=== PATIENT | female | born 1965 | race Hispanic/Latino ===

== ENCOUNTER 2018-09-26 08:40 | Emergency (ER) | payer SELFPAY ==
--- NOTE | 2018-09-26 09:21 | ER ---
Nurse's Notes [facility] Name: Martha Rubio Age: 53 yrs Sex: Female : 1965 Arrival Date: 09/26/2018 Time: 08:42 Bed 20 Private MD: Diagnosis: Allergic dermatitis of eyelid-bilateral;Allergic contact dermatitis Presentation: 09/26 08:44 Presenting complaint: Patient states: Bilateral eye swelling, pt reports "It's from jl7 hair dye that I used on Tuesday and I've had this reaction before with hair dye." Denies any SOB Took 50 mg Benadryl this morning at 0700. Transition of care: patient was not received from another setting of care. Onset: The symptoms/episode began/occurred gradually. Onset of symptoms was September 23, 2016. Risk Assessment: Do you want to hurt yourself or someone else? Patient reports no desire to harm self or others. Initial Sepsis Screen: Does the patient meet any 2 criteria? No. Patient's initial sepsis screen is negative. Does the patient have a suspected source of infection? No. Patient's initial sepsis screen is negative. Care prior to arrival: 50 mg Benadryl this morning \\T\\0700. 08:44 Method Of Arrival: Ambulatory 7 08:44 Acuity: BRAULIO 3 jl7 09:00 Anaphylaxis evaluation, angioedema to eyes. 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 - Social history:: Smoking status: Patient uses tobacco products, 4 cigarettes per day. - Ebola Screening: : No symptoms or risks identified at this time. Screenin:20 Abuse screen: Denies threats or abuse. Denies injuries from another. Nutritional sg screening: No deficits noted. Tuberculosis screening: No symptoms or risk factors identified. Never had TB. Fall Risk None identified. Assessment: 09:00 General: Appears in no apparent distress. well groomed, well developed, well nourished, sg Behavior is calm, cooperative, appropriate for age. Pain: Denies pain. Neuro: No deficits noted. Cardiovascular: Patient's skin is warm and dry. Respiratory: Airway is patent Respiratory effort is even, unlabored, Breath sounds are clear. GI: No signs and/or symptoms were reported involving the gastrointestinal system. : No signs and/or symptoms were reported regarding the genitourinary system. EENT: Sclera/Cornea are clear in right eye and left eye Oral mucosa is moist. Throat is clear is pink. Derm: Skin is pink, warm \\T\\ dry. Musculoskeletal: Range of motion: intact in all extremities, Swelling present in right eye and left eye. Vital Signs: 08:48 BP 127 / 88; Pulse 86; Resp 16 S; Temp 98(O); Pulse Ox 99% on R/A; Weight 46.72 kg (R); jl7 Height 5 ft. 2 in. (157.48 cm) (R); Pain 0/10; 08:48 Body Mass Index 18.84 (46.72 kg, 157.48 cm) jl7 ED Course: 08:40 Patient has correct armband on for positive identification. Call light in reach. Side sg rails up X2. Pulse ox on. NIBP on. Warm blanket given. Head of bed elevated. 08:42 Patient arrived in ED. as 08:47 Triage completed. jl7 08:48 Arm band placed on right wrist. jl7 08:55 Prudencio Cardenas MD is Attending Physician. [facility] 09:25 No provider procedures requiring assistance completed. Patient did not have IV access sg during this emergency room visit. 09:28 Stephen Damon RN is Primary Nurse. sg Administered Medications: 09:28 Drug: Benadryl 25 mg Route: PO; sg 09:28 Drug: predniSONE 60 mg Route: PO; sg 09:28 Drug: Pepcid 40 mg Route: PO; sg Outcome: 09:21 Discharge ordered by . [facility] 09:38 Discharged to home ambulatory, with friend. 09:38 Condition: good 09:38 Discharge instructions given to patient, Instructed on discharge instructions, follow up and referral plans. medication usage, safety practices, Demonstrated understanding of instructions, follow-up care, medications, Prescriptions given X 3. 09:41 Patient left the ED. iw Signatures: Stephen Damon RN RN sg Anderson, Corey, MD MD cha Martinez, Amelia as Williams, Irene, RN RN Cleo Hoskins RN RN jl7
--- NOTE | 2018-09-26 09:22 | EDPHYS ---
Physician Documentation [facility] Name: Martha Rubio Age: 53 yrs Sex: Female : 1965 Arrival Date: 09/26/2018 Time: 08:42 Bed 20 Private MD: ED Physician Prudencio Cardenas HPI: 09/26 09:18 This 53 yrs old Female presents to ER via Ambulatory with complaints of matt Allergic Reaction. 09:18 The patient presents with localized swelling, nasal itching, redness of skin. Onset: matt The symptoms/episode began/occurred 2 day(s) ago. Associated signs and symptoms: The patient has no apparent associated signs or symptoms. At home the patient or guardian has treated the symptoms with nothing. Severity of symptoms: At their worst the symptoms were mild moderate in the emergency department the symptoms are unchanged. The patient has experienced similar episodes in the past, a few times. 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 - Social history:: Smoking status: Patient uses tobacco products, 4 cigarettes per day. - Ebola Screening: : No symptoms or risks identified at this time. ROS: 09:18 Constitutional: Negative for fever, chills, and weight loss, ENT: Negative for injury, matt pain, and discharge, Neck: Negative for injury, pain, and swelling, Cardiovascular: Negative for chest pain, palpitations, and edema, Respiratory: Negative for shortness of breath, cough, wheezing, and pleuritic chest pain, Abdomen/GI: Negative for abdominal pain, nausea, vomiting, diarrhea, and constipation, Back: Negative for injury and pain, : Negative for injury, bleeding, discharge, and swelling, MS/Extremity: Negative for injury and deformity, Skin: Negative for injury, rash, and discoloration, Neuro: Negative for headache, weakness, numbness, tingling, and seizure, Psych: Negative for depression, anxiety, suicide ideation, homicidal ideation, and hallucinations, Allergy/Immunology: Negative for hives, rash, and allergies, Endocrine: Negative for neck swelling, polydipsia, polyuria, polyphagia, and marked weight changes, Hematologic/Lymphatic: Negative for swollen nodes, abnormal bleeding, and unusual bruising. 09:18 Eyes: Positive for swelling, of the right upper eyelid, right lower eyelid, left upper eyelid and left lower eyelid. Exam: 09:18 Constitutional: This is a well developed, well nourished patient who is awake, alert, matt and in no acute distress. Eyes: Pupils equal round and reactive to light, extra-ocular motions intact. Lids and lashes normal. Conjunctiva and sclera are non-icteric and not injected. Cornea within normal limits. Periorbital areas with no swelling, redness, or edema. ENT: Nares patent. No nasal discharge, no septal abnormalities noted. Tympanic membranes are normal and external auditory canals are clear. Oropharynx with no redness, swelling, or masses, exudates, or evidence of obstruction, uvula midline. Mucous membranes moist. Neck: Trachea midline, no thyromegaly or masses palpated, and no cervical lymphadenopathy. Supple, full range of motion without nuchal rigidity, or vertebral point tenderness. No Meningismus. Chest/axilla: Normal chest wall appearance and motion. Nontender with no deformity. No lesions are appreciated. Cardiovascular: Regular rate and rhythm with a normal S1 and S2. No gallops, murmurs, or rubs. Normal PMI, no JVD. No pulse deficits. Respiratory: Lungs have equal breath sounds bilaterally, clear to auscultation and percussion. No rales, rhonchi or wheezes noted. No increased work of breathing, no retractions or nasal flaring. Abdomen/GI: Soft, non-tender, with normal bowel sounds. No distension or tympany. No guarding or rebound. No evidence of tenderness throughout. Back: No spinal tenderness. No costovertebral tenderness. Full range of motion. Skin: Warm, dry with normal turgor. Normal color with no rashes, no lesions, and no evidence of cellulitis. MS/ Extremity: Pulses equal, no cyanosis. Neurovascular intact. Full, normal range of motion. Neuro: Awake and alert, GCS 15, oriented to person, place, time, and situation. Cranial nerves II-XII grossly intact. Motor strength 5/5 in all extremities. Sensory grossly intact. Cerebellar exam normal. Normal gait. Psych: Awake, alert, with orientation to person, place and time. Behavior, mood, and affect are within normal limits. 09:18 Head/face: Noted is swelling, that is moderate, of the right eye and left eye. Vital Signs: 08:48 BP 127 / 88; Pulse 86; Resp 16 S; Temp 98(O); Pulse Ox 99% on R/A; Weight 46.72 kg (R); jl7 Height 5 ft. 2 in. (157.48 cm) (R); Pain 0/10; 08:48 Body Mass Index 18.84 (46.72 kg, 157.48 cm) jl7 MDM: 08:55 Patient medically screened. matt Administered Medications: 09:28 Drug: Benadryl 25 mg Route: PO; sg 09:28 Drug: predniSONE 60 mg Route: PO; sg :28 Drug: Pepcid 40 mg Route: PO; sg Disposition: 09/26/18 09:21 Discharged to Home. Impression: Allergic dermatitis of eyelid - bilateral, Allergic contact dermatitis. - Condition is Stable. - Discharge Instructions: Allergies, Adult, Contact Dermatitis, Contact Dermatitis, [id number], Allergies, [id number], Allergy Skin Testing. - Prescriptions for Benadryl 25 mg Oral Capsule - take 1 capsule by ORAL route every 6 hours As needed; 30 tablet. Pepcid 20 mg Oral Tablet - take 1 tablet by ORAL route every 12 hours for 10 days; 20 tablet. Prednisone 20 mg Oral Tablet - take 2 tablet by ORAL route once daily for 5 days; 10 tablet. - Work release form, Medication Reconciliation Form, Thank You Letter, Antibiotic Education, Prescription Opioid Use form. - Follow up: Private Physician; When: 2 - 3 days; Reason: Recheck today's complaints, Continuance of care, Re-evaluation by your physician. - Problem is new. - Symptoms have improved. Signatures: Stephen Damon RN RN sg Anderson, Corey, MD MD cha Williams, Irene, RN RN Cleo Hoskins RN RN jl7 Corrections: (The following items were deleted from the chart) 09:23 09:21 09/26/2018 09:21 Discharged to Home. Impression: Allergic dermatitis of eyelid - matt bilateral. Condition is Stable. Forms are Medication Reconciliation Form, Thank You Letter, Antibiotic Education, Prescription Opioid Use. Follow up: Private Physician; When: 2 - 3 days; Reason: Recheck today's complaints, Continuance of care, Re-evaluation by your physician. Problem is new. Symptoms have improved. [facility] 09:41 09:23 09/26/2018 09:21 Discharged to Home. Impression: Allergic dermatitis of eyelid - iw bilateral; Allergic contact dermatitis. Condition is Stable. Discharge Instructions: Allergies, Adult, Contact Dermatitis, Contact Dermatitis, Ycix-ye-Mump, Allergies, [id number], Allergy Skin Testing. Prescriptions for Benadryl 25 mg Oral Capsule - take 1 capsule by ORAL route every 6 hours As needed; 30 tablet, Pepcid 20 mg Oral Tablet - take 1 tablet by ORAL route every 12 hours for 10 days; 20 tablet, Prednisone 20 mg Oral Tablet - take 2 tablet by ORAL route once daily for 5 days; 10 tablet. and Forms are Medication Reconciliation Form, Thank You Letter, Antibiotic Education, Prescription Opioid Use. Follow up: Private Physician; When: 2 - 3 days; Reason: Recheck today's complaints, Continuance of care, Re-evaluation by your physician. Problem is new. Symptoms have improved. [facility]
[2018-09-26] MEDS ORDERED: DIPHENHYDRAMINE 12.5MG/5ML LIQ ONE (09:32)
[2018-09-26] MEDS ORDERED: predniSONE 20 MG TAB ONE (09:32)
[2018-09-26] MEDS ORDERED: FAMOTIDINE 20 MG TAB ONE (09:32)
== END 2018-09-26 09:41 | disposition home or self-care (01) ==
LOC: ER 08:40
DX: L23.4 Allergic contact dermatitis due to dyes (principal); F17.210 Nicotine dependence, cigarettes, uncomplicated
CPT/HCPCS: 99283; J7512